=== PATIENT | female | born 1995 | race African-American/Black ===

== ENCOUNTER 2016-09-04 07:08 | Emergency (ER) | payer OTHER ==
[~2016-09-04] VITALS: Ht 160 cm; Wt 59.4 kg
[2016-09-04 07:08] VITALS: BP 120/81
[~2016-09-04 07:08] MED LIST: APAP500 PO; COLACE 100 MG100 MG PO; DERMOPLAST SPRA56 ML TOP; HYDROCORTISONE30 G9 TOP; IBUPROFEN 800800 M1 PO; IROSPAN 24/6 T1 EACH PO; LANOLIN56 GM TOP; NAPROSYN500 MG PO; TUCKS1 EAC1 TOP; ZANTAC 150MG T150 MG PO; ZOFRAN ODT4 MG PO
[2016-09-04] MEDS ORDERED: TRINATE TABLET1 TAB PO (07:14)
[2016-09-04] MEDS ORDERED: APAP500 PO (08:36)
== END 2016-09-04 08:37 ==
LOC: ER 07:08
DX: O26.891 Other specified pregnancy related conditions, first trimester (principal); O30.001 Twin pregnancy, unspecified number of placenta and unspecified number of amniotic sacs, first trimester; Z3A.08 8 weeks gestation of pregnancy; M54.5 Low back pain